=== PATIENT | female | born 1970 | race American Indian/Alaskan Native ===

== ENCOUNTER 2021-10-03 06:29 | Day surgery (SDC) | payer MEDICARE ==
[~2021-10-03 06:29] MED LIST: ceFAZolin/Water 2 GM/20 ML 2 GM/20 ML SYRINGE IV NR
[2021-10-03] MEDS ORDERED: SODIUM CHLORIDE 0.9% 1000 ML 1,000 ML ONE (06:39)
[2021-10-03 07:17] LABS: Hematocrit 29.4 % (30.3-42.9); Hemoglobin 9.4 gm/dl (10.1-14.3); Mean Corpuscular HGB Conc 32 % (30-34); Mean Corpuscular Volume 86 fl (79-97); Platelet Count 254 K/mm3 (140-440); Red Blood Count 3.41 M/mm3 (3.65-5.03); Red Cell Distribution Width 15.8 % (13.2-15.2)
[2021-10-03] MEDS ORDERED: SODIUM CHLORIDE 0.9% 500 ML 500 ML ONE (07:31)
[2021-10-03] MEDS ORDERED: LIDOCAINE (1%) 10 MG/1 ML VIAL 20 ML MDV ONE (07:31)
[2021-10-03] MEDS ORDERED: HEPARIN 10,000 UNITS/10 ML VIAL ONE (07:31)
[2021-10-03] MEDS ORDERED: BUPIVACAINE/PF (0.5%) 5 MG/1 ML 30 ML VIAL INFILTRATI ONE ×3 (07:31→09:41)
[2021-10-03 07:46] LABS: Calcium 8.8 mg/dL (8.4-10.2)
[2021-10-03] MEDS ORDERED: LIDOCAINE MPF (2%) 20 MG/1 ML VIAL 5 ML ONE (07:53)
[2021-10-03] MEDS ORDERED: ONDANSETRON 4 MG/2 ML INJ ONE (07:53)
[2021-10-03] MEDS ORDERED: fentaNYL 100 MCG/2 ML INJ ONE (07:54)
[2021-10-03] MEDS ORDERED: propofoL 200 MG/20 ML VIAL IV ONE (07:54)
--- NOTE | 2021-10-03 08:16 | Anesthesia Consultation ---
Anesthesia Consult and Med Hx Date of service: 10/03/21 - Airway Anesthetic Teeth Evaluation: Good ROM Head & Neck: Adequate Mental/Hyoid Distance: Adequate Mallampati Class: Class I Intubation Access Assessment: Good - Pulmonary Exam CTA: Yes - Pre-Operative Health Status ASA Pre-Surgery Classification: ASA3 Proposed Anesthetic Plan: General - Pulmonary Hx Smoking: No Hx Respiratory Symptoms: No SOB: No - Cardiovascular System Hx Hypertension: Yes (With CHF) - Central Nervous System Hx Neuromuscular Disorder: No Hx Seizures: No Hx Psychiatric Problems: No - Endocrine Hx Renal Disease: Yes (STAGE 5 KIDNEY DISEASE) Hx End Stage Renal Disease: Yes Hx Liver Disease: No Hx Non-Insulin Dependent Diabetes: Yes Hx Thyroid Disease: No - Hematic Hx Anemia: Yes Hx Sickle Cell Disease: No - Other Systems Hx Alcohol Use: No Hx Substance Use: No Hx Cancer: No Hx Obesity: No - Additional Comments Anesthesia Medical History Comments: Patient denied previous anesthesia complication
--- NOTE | 2021-10-03 08:18 | Anesthesia Day of Surgery ---
Anesthesia Day of Surgery - Day of Surgery Patient Examined: Yes Patient H&P Reviewed: Yes Patient is NPO: Yes Beta Blockers: No Cardiac Clearance: No Pulmonary Clearance: No
[2021-10-03] MEDS ORDERED: SODIUM CHLORIDE 0.9% 1000 ML 1,000 ML IV SCH (09:00)
[2021-10-03] MEDS ORDERED: ePHEDrine SULFATE 50 MG/1 ML INJ ONE (09:22)
[2021-10-03] MEDS ORDERED: SODIUM CHLORIDE 0.9% IRR 1,500 ML BOTTLE IR ONE (09:40)
[2021-10-03] MEDS ORDERED: HEPARIN 10,000 UNITS/10 ML VIAL IV ONE (09:40)
--- NOTE | 2021-10-03 11:36 | Short Stay Summary ---
Short Stay Documentation Date of service: 10/03/21 Narrative H&P: See H&P - History H&P: obtained from office - Allergies and Medications Current Medications: Allergies No Known Allergies Allergy (Verified 09/29/21 10:59) Home Medications Medication Instructions Recorded Confirmed Last Taken Type Atorvastatin [Lipitor Tab] 80 mg PO QHS 09/29/21 09/29/21 Unknown History Bumetanide [Bumetanide 2 mg tab] 2 mg PO BID 09/29/21 09/29/21 Unknown History Citalopram [celeXA] 10 mg PO QDAY 09/29/21 09/29/21 Unknown History Gabapentin [Neurontin] 400 mg PO TID 09/29/21 09/29/21 Unknown History Insulin Glargine [Lantus VIAL] 18 units SUB-Q QHS 09/29/21 09/29/21 Unknown History Lispro Insulin [HumaLOG] 3 unit SQ TIDWM 09/29/21 09/29/21 Unknown History Losartan [Cozaar] 25 mg PO QDAY 09/29/21 09/29/21 Unknown History Metoprolol [Lopressor TAB] 50 mg PO BID 09/29/21 09/29/21 Unknown History Pregabalin [Lyrica] 150 mg PO BID 09/29/21 09/29/21 Unknown History calcitrioL [Rocaltrol] 0.25 mcg PO QDAY 09/29/21 09/29/21 Unknown History carvediloL [Coreg] 25 mg PO BID 09/29/21 09/29/21 Unknown History metOLazone [Zaroxolyn] 5 mg PO QDAY 09/29/21 09/29/21 Unknown History Active Medications Cefazolin Sodium (Ancef/Sterile Water 2 Gm/20 Ml) 2 gm in 20 mls @ 80 mls/hr IV PREOP NR; Protocol Stop: 10/03/21 20:00 Sodium Chloride (Nacl 0.9% 1000 Ml) 1,000 mls @ 42 mls/hr IV DIRECT MARCY - Brief post op/procedure progress note Date of procedure: 10/03/21 Pre-op diagnosis: Creation of Left Brachiocephalic Arteriovenous Fistula Post-op diagnosis: same Anesthesia: GETA Surgeon: JAC DOZIER Estimated blood loss: 50-100ml Pathology: none Condition: stable - Disposition Condition at discharge: Good Short Stay Discharge Plan Activity: other (No heavy lifting with her left arm for 2 weeks. Use stress ball with left hand as often as possible.) Wound: open to air, keep clean and dry, other (Okay to wash the left arm incisions with soap and water but do not soak in water for 2 weeks.) Additional Instructions: NO HEAVY LIFTING WITH LEFT ARM FOR 2 WEEKS USE STRESS BALL WITH LEFT HAND OFTEN POSSIBLE KEEP WOUND OPEN TO AIR, KEEP CLEAN AND DRY -- OK TO WASH WITH SOAP AND WATER DO NOT SOAK IN WATER X 2 WEEKS KEEP FOLLOW UP APPOINTMENT IN 14 DAYS YOU MAY RESUME YOUR DIABETIC/RENAL DIET--AVOID SPICY OR GREASY FOODS X 24 HRS TAKE MEDS PRESCRIBED DO NOT DRIVE, OPERATE HEAVY EQUIPMENT, OR SIGN LEGAL DOCUMENTS X 24 HRS Follow up with: ROGELIO WHITMAN PA [Primary Care Provider] - 7 Days JAC DOZIER MD [Staff Physician] - 14 Days Forms: [facility] Discharge Signature Page Prescriptions: HYDROcodone/APAP 5-325 [[place] 5/325] 1 each PO Q4HR PRN #30 tablet PRN Reason: Pain
--- NOTE | 2021-10-03 11:40 | Operative Report ---
Operative Report Operative Report: Date of procedure: 10/03/2021 Pre-operative diagnosis: Stage V Chronic Renal Failure Post-operative diagnosis: Same Procedure(s): Creation of Left Brachial Artery to Cephalic Vein Arteriovenous Fistula Surgeon: Camilo Peraza MD Material Liaison: None Anesthesia: Regional/MAC EBL: Minimal Counts: Correct Complications: None Condition: Stable Findings: Successful creation of left brachiocephalic arteriovenous fistula with palpable thrill and palpable radial pulse at the completion of the case. Specimen: None Indications: The patient is a 51-year-old female with a history of chronic renal insufficiency was in need of permanent dialysis access to avoid placement of a permacath if she progresses to hemodialysis. Her work-up revealed she is an adequate candidate for creation of a left brachiocephalic arteriovenous fistula. She was given the risk, benefits, and alternative procedures and consented to the procedure. Description of Procedure: The patient was brought to the operating room and laid in supine position. A timeout was performed and then general endotracheal anesthesia was achieved. Her left arm was then prepped and draped in normal sterile fashion. A transverse incision was then made and carried down to the cephalic vein using sharp dissection. The vein was dissected out both proximally and distally and suture ligated and divided distally. I flushed the vein with heparinized saline and flow was controlled with a bulldog clamp. I then dissected out the brachial artery through this incision circumferentially both proximal and distal and controlled the artery with vessel loops. I created a venotomy after transecting the distal vein using Cantrell scissors and at that time I discovered that there was a short segment occlusion of the cephalic vein at the antecubital crease. I extended the venotomy and inserted a flush with an olive-tipped and the remainder of the vein was patent. Because I had to extend the venotomy the anastomosis would not be on tension so I made a counterincision in longitudinal fashion over the distal cephalic vein. I then used Metzenbaums to dissect the vein free of the surrounding soft tissue to remove any possible tension. I systemically heparinized the patient with 3000 units of heparin IV and used angl ed DeBakey clamps to control flow through the artery. I created an arteriotomy using an 11 blade and Cantrell scissors. I created an end to side anastomosis between the cephalic vein and brachial artery using a 6-0 Prolene in running fashion. Prior to completing the anastomosis I flashed the artery both proximally and distally and then flushed the anastomosis with heparinized saline to remove any debris. I then completed the anastomosis and removed all clamps allowing flow into the fistula which had an adequate thrill. I achieved hemostasis with a combination of Quick Clot and electrocautery. Once hemostasis had been achieved I closed the wounds in 2 layers using a 3-0 Vicryl in a running fashion in the deep dermal layer and a 4-0 Monocryl in running fashion in the subcuticular layer. I then dressed the wounds with Dermabond. The patient tolerated the procedure well. All sponge, needle, and instrument counts were correct. The patient was taken to the recovery area in stable condition.
[2021-10-03] MEDS ORDERED: DEXTROSE 50% IN WATER (25GM) 50 ML SYRINGE IV ONE ×2 (11:51→11:52)
[2021-10-03] MEDS ORDERED: HYDROcodone/ACETAMINOPHEN 5-325 MG TAB ONE (12:55)
[2021-10-03] MEDS ORDERED: HYDROcodone/ACETAMINOPHEN 5-325 MG TAB PO PRN (13:00)
[2021-10-03] MEDS ORDERED: ONDANSETRON 4 MG/2 ML INJ IV ONE (14:00)
--- NOTE | 2021-10-03 14:36 | Post Anesthesia Evaluation ---
- Post Anesthesia Evaluation Patient Participated: Yes Airway Patent: Yes Stable Respiratory Function: Yes Nausea/Vomiting: No Temp > 96.8F: Yes Pain Manageable: Yes Adequeate Hydration: Yes Anesthesia Complications: No
[2021-10-03 15:08] VITALS: BP 140/80
== END 2021-10-03 14:45 | disposition home or self-care (01) ==
LOC: OR 06:29 → EDBD 08:00 → OR 14:45
PROVIDERS: ATTEND Surgery Vascular Surgery
DX: I13.2 Hypertensive heart and chronic kidney disease with heart failure and with stage 5 chronic kidney disease, or end stage renal disease (principal); E11.22 Type 2 diabetes mellitus with diabetic chronic kidney disease; I50.9 Heart failure, unspecified; N18.6 End stage renal disease; E11.319 Type 2 diabetes mellitus with unspecified diabetic retinopathy without macular edema; D64.9 Anemia, unspecified; E78.00 Pure hypercholesterolemia, unspecified; M19.90 Unspecified osteoarthritis, unspecified site; Z79.899 Other long term (current) drug therapy; Z79.4 Long term (current) use of insulin; Z98.41 Cataract extraction status, right eye; Z98.42 Cataract extraction status, left eye; Z90.49 Acquired absence of other specified parts of digestive tract; Z87.440 Personal history of urinary (tract) infections; Z98.890 Other specified postprocedural states
CPT/HCPCS: 36415; 36821; 80048; 82962; 85027; C1757; J0690; J1644; J2405; J2704; J3010; J3490; J7030; J7040